=== PATIENT | female | born 1970 | race Caucasian/White ===

== ENCOUNTER → 2017-03-17 | Outpatient (CLI) | payer OTHER ==
[2014-08-11 21:30] VITALS: BP 111/53
--- NOTE | 2017-03-17 11:01 | RAD ---
Chest radiograph two-view Clinical indication: Preemployment physical. Comparison: None. Findings: Cardiac and mediastinal silhouettes are within normal limits. No pleural effusion, pneumothorax or focal consolidation. Impression: No acute cardiopulmonary abnormality
== END | disposition home or self-care (01) ==
LOC: DXRADRC 10:01
PROVIDERS: ATTEND General Practice
DX: Z02.1 Encounter for pre-employment examination (principal)
CPT/HCPCS: 71020

== ENCOUNTER → 2017-09-23 | Outpatient (CLI) | payer OTHER ==
[2014-08-11 21:30] VITALS: BP 111/53
--- NOTE | 2017-09-23 12:52 | RAD ---
EXAM: CHEST 2 VIEWS History: Cough COMPARISON: 03/17/2017 TECHNIQUE: PA and lateral chest radiographs FINDINGS: The cardiomediastinal silhouette is within normal limits. The lungs are clear bilaterally. The costophrenic sulci are clear and well demarcated bilaterally. IMPRESSION: No radiographic evidence of an acute cardiopulmonary abnormality.
== END | disposition home or self-care (01) ==
LOC: PMG 12:22
PROVIDERS: ATTEND Nurse Practitioner Family
DX: R05 Cough (principal)
CPT/HCPCS: 71046

== ENCOUNTER → 2018-05-06 | Outpatient (CLI) | payer OTHER ==
[2014-08-11 21:30] VITALS: BP 111/53
--- NOTE | 2018-05-06 15:51 | RAD ---
EXAM: Left knee, 2 views. HISTORY: Pain. COMPARISON: None. FINDINGS: 2 views left knee are obtained. There is no fracture, dislocation or subluxation. There is a small joint effusion. IMPRESSION: Small left knee effusion. Electronically signed by: Mony Barreto MD (05/06/2018 3:48 PM) [id number]
== END | disposition home or self-care (01) ==
LOC: PMG 15:24
PROVIDERS: ATTEND Physician Assistant
DX: M25.462 Effusion, left knee (principal); Z88.0 Allergy status to penicillin
CPT/HCPCS: 73560

== ENCOUNTER → 2019-03-12 | Outpatient (CLI) | payer OTHER ==
[2014-08-11 21:30] VITALS: BP 111/53
--- NOTE | 2019-03-30 09:50 | RAD ---
DATE: 03/12/2019 11:00 AM EXAM: MAMMO TEODORO SCREENING BILATERAL HISTORY: routine screening evaluation. COMPARISON: 06/04/2012 Bilateral CC and MLO views of the breasts were performed. Bilateral breast tomosynthesis was performed in CC and MLO projections. This study was interpreted with the benefit of Computerized Aided Detection (CAD). FINDINGS: Breast Density: FATTY The Breast Parenchyma is primarily fatty replaced. Breast parenchyma level density A. Benign calcifications are present. The parenchymal pattern appears stable. Small nodular density is seen within the upper outer left breast approximately 6 cm from the nipple, best seen on tomographic images CC-60/85 and MLO-35/95. No suspicious left breast microcalcification or architectural distortion. No suspicious masses, microcalcifications or architectural distortion is present to suggest malignancy in the right breast. The visualized axillae are unremarkable. IMPRESSION: Left breast mass, findings for which additional imaging is advised. BI-RADS CATEGORY: 0 INCOMPLETE: NEEDS ADDITIONAL IMAGING EVALUATION AND/OR PRIOR MAMMOGRAMS FOR COMPARISON. RECOMMENDED FOLLOW-UP: ADD ADDITIONAL IMAGING additional imaging of the left breast is recommended to include spot compression views and ultrasound of the superior lateral left breast. PQRS compliance statement: Patient information was entered into a reminder system with a target due date for the next mammogram. Mammography is a sensitive method for finding small breast cancers, but it does not detect them all and is not a substitute for careful clinical examination. A negative mammogram does not negate a clinically suspicious finding and should not result in delay in biopsying a clinically suspicious abnormality. "Our facility is accredited by the [employer] Mammography Program."
== END | disposition home or self-care (01) ==
LOC: MAMMO 11:01
PROVIDERS: ATTEND Physician Assistant
DX: Z12.31 Encounter for screening mammogram for malignant neoplasm of breast (principal)
CPT/HCPCS: 77063; 77067

== ENCOUNTER → 2019-04-09 | Outpatient (CLI) | payer OTHER ==
[2014-08-11 21:30] VITALS: BP 111/53
--- NOTE | 2019-04-09 15:33 | RAD ---
DATE: 04/09/2019. EXAM: DIGITAL DIAGNOSTIC LT, BREAST LEFT HISTORY: Left breast callback. COMPARISON: Previous mammogram from 03/12 2019. This study was interpreted with the benefit of Computerized Aided Detection (CAD). FINDINGS: Breast Density: FATTY The Breast Parenchyma is primarily fatty replaced. Breast parenchyma level density A.. Persistent asymmetry is seen in the upper retroareolar left breast. Ultrasound TECHNIQUE: Limited ultrasound of the upper outer quadrant of the left breast. COMPARISON: Same day diagnostic mammogram FINDINGS: No solid or cystic lesion seen in the interrogated left breast from 1:00 to 3:00 position corresponding to mammographically seen abnormality. IMPRESSION: Persistent asymmetry in the retroareolar upper left breast without sonographic correlate. BI-RADS CATEGORY: 3 PROBABLE BENIGN FINDING(S-SHORT INTERVAL FOLLOW-UP SUGGESTED RECOMMENDED FOLLOW-UP: 6M 6 MONTH FOLLOW-UP. Follow-up left breast mammogram in 4-6 months recommended. PQRS compliance statement: Patient information was entered into a reminder system with a target due date for the next mammogram. Mammography is a sensitive method for finding small breast cancers, but it does not detect them all and is not a substitute for careful clinical examination. A negative mammogram does not negate a clinically suspicious finding and should not result in delay in biopsying a clinically suspicious abnormality. "Our facility is accredited by the [employer] Mammography Program."
== END | disposition home or self-care (01) ==
LOC: MAMMO 14:05
PROVIDERS: ATTEND Physician Assistant
DX: N64.89 Other specified disorders of breast (principal)
CPT/HCPCS: 76641; 77065

== ENCOUNTER → 2019-08-12 | Outpatient (CLI) | payer OTHER ==
[2014-08-11 21:30] VITALS: BP 111/53
--- NOTE | 2019-08-12 15:13 | RAD ---
DATE: 08/12/2019. EXAM: MAMMO TEODORO DIAG LT, BREAST LEFT. HISTORY: 4 month follow-up left breast density. COMPARISON: 03/12/2019. This study was interpreted with the benefit of Computerized Aided Detection (CAD). FINDINGS: Breast Density: SCATTERED The breast parenchyma shows scattered fibroglandular densities. Breast parenchyma level B.. The site of concern superolaterally on the left is unchanged. It appears to be a parenchymal density. Scattered calcifications are benign. Sonography of the left upper outer breast was performed. This reveals only normal parenchyma. There is no suspicious sonographic finding. BI-RADS CATEGORY: 3 PROBABLY BENIGN FINDING(S)-SHORT INTERVAL FOLLOW-UP SUGGESTED. RECOMMENDED FOLLOW-UP: 6M 6 MONTH FOLLOW-UP. 1. The site of concern superolaterally on the left may be normal parenchyma. It can be reassessed for one year stability when the patient returns for her bilateral examination in February 2020. PQRS compliance statement: Patient information was entered into a reminder system with a target due date 03/12/2019 for the next mammogram. Mammography is a sensitive method for finding small breast cancers, but it does not detect them all and is not a substitute for careful clinical examination. A negative mammogram does not negate a clinically suspicious finding and should not result in delay in biopsying a clinically suspicious abnormality. "Our facility is accredited by the [employer] Mammography Program."
== END ==
LOC: US 12:50
PROVIDERS: ATTEND Physician Assistant
DX: R92.1 Mammographic calcification found on diagnostic imaging of breast (principal)
CPT/HCPCS: 76641; 77065; G0279; 77061

== ENCOUNTER → 2020-06-01 | Outpatient (CLI) | payer OTHER ==
[2014-08-11 21:30] VITALS: BP 111/53
--- NOTE | 2020-06-02 16:00 | RAD ---
DATE: 06/01/2020 4:23 PM EXAM: MAMMO TEODORO SCREENING BILATERAL HISTORY: Screening COMPARISON: 03/12/2019 Bilateral CC and MLO views of the breasts were performed. Bilateral breast tomosynthesis was performed in CC and MLO projections. This study was interpreted with the benefit of Computerized Aided Detection (CAD). FINDINGS: Breast Density: FATTY The Breast Parenchyma is primarily fatty replaced. Breast parenchyma level density A. No suspicious masses, microcalcifications or architectural distortion is present to suggest malignancy in either breast. The visualized axillae are unremarkable. IMPRESSION: No mammographic evidence of malignancy. BI-RADS CATEGORY: 1 NEGATIVE RECOMMENDED FOLLOW-UP: 12M 12 MONTH FOLLOW-UP Annual screening mammography is recommended, unless clinically indicated sooner based on symptoms or change in physical exam. PQRS compliance statement: Patient information was entered into a reminder system with a target due date for the next mammogram. Mammography is a sensitive method for finding small breast cancers, but it does not detect them all and is not a substitute for careful clinical examination. A negative mammogram does not negate a clinically suspicious finding and should not result in delay in biopsying a clinically suspicious abnormality. "Our facility is accredited by the [employer] Mammography Program."
== END ==
LOC: MAMMO 15:45
PROVIDERS: ATTEND Physician Assistant Medical
DX: Z12.31 Encounter for screening mammogram for malignant neoplasm of breast (principal)
CPT/HCPCS: 77063; 77067

== ENCOUNTER → 2021-06-08 | Outpatient (CLI) | payer OTHER ==
[2014-08-11 21:30] VITALS: BP 111/53
--- NOTE | 2021-06-08 19:04 | RAD ---
Bilateral digital screening 2-D and 3-D (digital breast tomosynthesis) mammogram: Reason for examination: Routine screening. Comparison: Mammogram from 06/01/2020. Interpretation was made with the benefit of CAD. FINDINGS: Breast density: Category A. Breast tissue is almost entirely fatty. No suspicious breast mass, malignant appearing calcifications, or architectural distortion is seen. IMPRESSION: No evidence of malignancy. Assessment: BI-RADS 1. Negative. Recommendation: Routine screening mammograms. The patient will receive a letter with the results in the mail. Patient information will be entered i nto the mammography reminder system with a target recall date for the next mammogram. A reminder tatiana er will be generated. Electronically signed by: Holly Daniel MD (06/08/2021 7:02 PM) [id number]
== END ==
LOC: MAMMO 11:23
PROVIDERS: ATTEND Physician Assistant Medical
DX: Z12.31 Encounter for screening mammogram for malignant neoplasm of breast (principal)
CPT/HCPCS: 77063; 77067